=== PATIENT | female | born 1945 | race Caucasian/White ===

== ENCOUNTER 2024-08-09 15:19 | Inpatient (IN) | payer OTHER, MEDICARE ==
[2024-08-09] MEDS: cloNIDine HCL 0.1 MG TAB PO PRN (22:46)
[2024-08-09 23:49] LABS: Renal Epithelial <5 /HPF (None Seen); Specific Gravity 1.013 (1.005-1.030); Sqamous Epithelial <5 /HPF (None Seen); Urine Bacteria <20 /HPF (<20); Urine Bilirubin NEGATIVE (Negative); Urine Blood Negative (Negative); Urine Clarity Turbid (Clear); Urine Color Light-Yellow (Yellow); Urine Culture Reflex Order REFLEXED; Urine Glucose NEGATIVE (Negative); Urine Ketones NEGATIVE (Negative); Urine Micro Reflex YN NO BILL MICROSCOPIC; Urine Nitrite NEGATIVE (Negative); Urine Protein 1+ (Negative); Urine RBC <5 /HPF (None Seen); Urine Urobilinogen Normal (Normal)
[2024-08-10 06:26] LABS: Absolute Basophils 0.1 K/uL (0-0.5); Absolute Eosinophils 0.6 K/uL (0-0.5); Absolute Lymphocytes (CBC) 3.1 K/uL (0.7-4.9); Absolute Neutrophil 5.2 K/uL (1.8-8.0); Basophils % 1.1 % (0-1.3); Eosinophils % 6.1 % (0-4.4); Hematocrit 34.9 % (36.0-45.0); Hemoglobin 11.5 g/dL (12.0-15.0); Lymphocytes % 30.9 % (15.3-44.8); MCH 28.9 pg (27.0-35.0); MCHC 32.9 g/dL (32.0-36.0); MPV 8.2 fL (7.6-11.3); Neutrophils % 51.9 % (41.7-73.7); Platelets 274 thou/uL (152-406); RBC Red Blood Cell Count 3.97 M/uL (3.86-4.86)
[2024-08-10] MEDS: LEVOTHYROXINE SOD 0.125 MG TAB PO SCH (06:44)
[2024-08-10 06:51] LABS: Albumin 2.6 g/dL (3.4-5.0); Anion Gap 8.4 mEq/L (5.0-15.0); Potassium 3.4 mEq/L (3.5-5.1); Prealbumin 15.5 mg/dL (20-40)
[2024-08-10] MEDS: INSULIN REGULAR (HUMAN) 100 UNIT/ML SQ SCH (07:19)
[2024-08-10] MEDS: ASPIRIN 81 MG CHEWABLE TABLET PO SCH (07:42)
[2024-08-10] MEDS: CLOPIDOGREL 75 MG TABLET PO SCH (07:42)
[2024-08-10] MEDS ORDERED: ENOXAPARIN 40 MG/0.4 ML SQ SCH (08:00)
--- NOTE | 2024-08-10 08:56 | RAD REPORT ---
EXAMINATION: ONE VIEW CHEST XR CLINICAL INDICATION: Female, 79 years old.,Cough TECHNIQUE: Frontal chest projection is submitted. Examination is limited by patient positioning and t echnique. COMPARISON: No prior exam. FINDINGS: The lungs are well inflated and clear. No pneumothorax or sizable effusion. The heart is normal in s ize. Mediastinal contours are unremarkable. IMPRESSION: No acute intrathoracic abnormalities.
[2024-08-10] MEDS: AMLODIPINE 5 MG TAB PO SCH (10:07)
[2024-08-10] MEDS: POTASSIUM 25 MEQ EFFERV TAB PO ONE (11:34)
[2024-08-10] MEDS: lisinopriL 10 MG TAB PO SCH (11:35)
[2024-08-10] MEDS: ENSURE ENLIVE 237 ML CAN PO SCH (11:37)
[2024-08-10] MEDS: ENOXAPARIN 40 MG/0.4 ML SQ SCH (16:37)
[2024-08-10] MEDS: ATORVASTATIN 40 MG TAB PO SCH (19:40)
--- NOTE | 2024-08-11 00:46 | HP ---
Date of Admission: 08/09/2024 Time Of Service: 10:30 a.m. Chief Complaint: "I had a stroke and has some weakness on my right side." History Of Present Illness: Ms. 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 brought her to the [facility], where she was evaluated and given t he onset was prior to the 4-1/2-hour window, she did not have TNKs. She was treated with dual-antipl atelet medications, aspirin, Plavix, folic acid have permissive hypertension. CT scan of the head did not show an occlusion such as acute ischemic stroke or hemorrhagic stroke or an aneurysm . Blood workup was normal. She was transferred to [facility] for higher level of car e, where an MRI revealed a left pontine ischemic stroke that is likely to have been a lacunar stroke. Transthoracic echocardiogram was with a normal ejection fraction. There was a mildly dilated left atrium. She had Lipitor added along with aspirin, Plavix, and folic acid. She is monitored in telem etry, has an insulin sliding scale, and then evaluated by Physical Therapy and speech therapist. She was found to have significant hemiplegia on the right and required DDAVP treatment for intracranial atherosclerosis, and she was found to have moderate assistance required for bed mobilization, minimum assistance for transfers with a quad cane, ambulating 25 feet with a rolling walker. She did have f all precautions placed. She was evaluated by the Speech for swallowing and did pass the swallow stud y, but did require Speech Therapy to continue, but had dysarthria and some mild articulation issues. As a result, she is now functioning well below her prior level of functioning and would benefit from aggressive inpatient rehabilitation to help her return to her prior level of functioning and reduce risk of rehospitalization. In the meanwhile, her comorbid conditions need to be addressed and that w ill be done in inpatient rehabilitation. Past Medical History: Includes breast cancer, glaucoma, hypertension, hypothyroidism. She had breas t lumpectomy in 2006, colonoscopy in 2022, hysterectomy also done. She had intracapsular cataract ex traction with intraocular lens implantation and thyroidectomy. Allergies: AMOXICILLIN. Imaging: CT angiogram of her head and neck on 08/05 shows focal severe stenosis of the proximal aspe ct of the left posterior division of the M1 segment, moderate to high-grade narrowing in the right M2 segment, no aneurysm or additional high-grade stenosis in the intracranial or cervical vessels seen. There is unremarkable CT perfusion study. A CT stroke of the head without contrast show s no acute intracranial abnormalities, mass effects, hemorrhage. There is an indeterminate lacunar i nfarct in the right anterior ambrose radiata, probably subacute to chronic. She had a JOSH with bubble study that was negative. Medications: Tylenol 650 mg every 6 hours as needed, Norvasc 5 mg daily, aspirin 81 mg daily, Lipito r 40 mg daily, Catapres 0.1 mg for systolic blood pressure greater than 170 every 4 hours, Plavix 75 mg daily, Lovenox 40 mg subcutaneously daily, insulin sliding scale. She has Synthroid 0.125 mg satnam y, lisinopril 10 mg twice daily, Ensure Enlive 237 mL twice daily. Family History: Noncontributory. Social History: No alcohol, tobacco, or IV drug use. Lives in single family home with family. Review of Systems: She does report incoordination in upper and lower extremities. Mild vertigo or dizziness-type sympto ms. Mild dysarthria. No rash or other issues such as psychiatric issues. No active gastrointestina l or genitourinary complaints. Current Level Of Functioning: Currently setup assistance for eating, supervision for oral hygiene. Maximal assistance for toileting, showering, upper body dressing is at moderate assistance. Lower dot dy dressing maximum assistance, donning and doffing of footwear maximal assistance. Rolling left-to- right, [id number] moderate contact guard assistance. Lying to sitting on the side of bed moderate assistance. Svx-vs-hgdqf moderate assistance. Transfer from bed to chair to toilet to shower, maxim al assistance. Ambulation, she is dependent with a rolling walker covering only 25 feet. Physical Examination: Vital Signs: Blood pressure 140/68, pulse 68, respiratory rate 14, temperature 97.6, oxygen saturati on 96%, weight 156 pounds, height 5 feet, BMI 30.5. General: Ms. Forman is sitting in a chair beside the bed. HEENT: She is normocephalic, atraumatic. Sclerae are anicteric. Oropharynx pink and moist. Neck: Supple. Chest: Clear. Heart: Regular. Extremities: She does have significant weakness in the right upper and lower extremity, working hard to improve the strength on that side. Left intact in terms of coordination, strength, and sensation . Laboratory Studies: White blood cell count 10.1, hemoglobin 11.5, platelets 274. Sodium 139, potass ium 3.4, chloride 107, carbon dioxide 27, BUN 35, creatinine 0.94, glucose ranged from 101 to 114, ca lcium 8.3, magnesium 2.0, albumin 2.6, prealbumin 15.5. Urinalysis shows 75 esterase, 10-20 red bloo d cells, 1+ protein, turbid clarity, otherwise unremarkable. Rehab And Medical Assessment And Plan: Ms. Forman is an 79-year-old patient admitted to the [facility] rehabilitation unit with impairment category 01, stroke. Impairment group code is 01.2, right bod y involvement, left brain. Etiologic diagnosis, pontine infarct. 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 Plan: 1.She will have physical, occupational, and speech therapy for 3-1/2 hours, 5 of 7 days. 2.We will continue for pain management Tylenol 650 mg every 6 hours as needed, Norvasc 5 mg daily fo r her hypertension along with Prinivil 10 mg twice daily. She has clonidine for systolic blood press ure greater than 170. She has Lipitor for dyslipidemia, Plavix and aspirin for stroke risk reduction , Lovenox for DVT risk reduction, Synthroid for hypothyroidism at 0.125 mg daily, and she has Ensure Enlive for malnutrition 237 mL twice daily. Comorbidities That Are Impacting Rehabilitation: She has hypertension at this point with blood press ures that are poorly controlled with adjustments for medications required systolic to 131. Adjustments will be made as she is doing therapy and her blood sugars do show good control at this point. She has mild malnutrition, electrolyte abnormalities; those need to be addressed. There is a risk of aspiration pneumonia. The patient needs aggressive speech therapy to reduce that risk and w ork on the respiratory exercises as well, such as incentive spirometry. Rehab Specific Plan: Ms. Forman will have physical, occupational, and speech therapy for 3-1/2 hour s, 5 of 7 days to improve her ability to transfer from bed to chair to toilet to shower and to perfor m toilet and showering. She will have therapy to help her with her ambulation more than household di stances, up and down steps, and to manage a wheelchair for longer distances. In addition, cognitive therapy via Speech to help with swallowing and articulation as well to help her minimize the risk of aspiration, make good decisions, and have safety awareness as a priority. Ms. Forman has a good understanding of the process of admission to the inpatient rehabilitation unit and how she will benefit from physical, occupational, and speech therapy. She will have 24 hours a day, 7 days a week skilled rehabilitation nursing, daily physician evaluation and management, and [facility] [place] service evaluation and management for discharge planning, home equipment, and followup along with therapy. If need be, additional help from the hospitalist service will be consulted. Barriers To Discharge: Currently, barriers are minimal for discharge. Family is at home and she sonny l have to continue therapy via Home Health. There is a risk of falling and bleeding obviously from h er incoordination related to the location of her stroke, but she has a good prognosis for doing very well. Length Of Stay: About 12 to 14 days. Disposition: Back to home with family and continue home health. Prognosis: Good. Code Status: Full code. Rehab Specific Goals: 1.Become independent with upper and lower body dressing, donning and doffing of footwear. 2.Independently mobilize 250 feet with a rolling walker and 250 feet with a wheelchair and independe ntly go up and down steps. 3.Independently perform cognitive functioning including safety awareness, memory, judgment issues, a nd also for swallowing. The above goals were reviewed with Ms. Forman and she is in agreement. By signing this document, I acknowledge I personally performed a full physical examination on Ms. Jun padilla no later than 24 hours after her admission to the inpatient rehabilitation facility and determin ed that she is able to tolerate the above course of treatment at an intensive level for a reasonable period of time. A detailed individualized plan of care for her will be completed by hospital day 4 b ased on the preadmission screen, history and physical, and therapy evaluations. KYLER Voice ID: [id number]
[2024-08-11] MEDS: AMLODIPINE 5 MG TAB PO SCH (16:58)
[2024-08-11] MEDS ORDERED: DOCUSATE NA/SENNA CONC 1 TAB PO PRN (17:37)
[2024-08-11] MEDS ORDERED: AMLODIPINE 5 MG TAB PO SCH (20:00)
[2024-08-12] MEDS ORDERED: TRAZODONE 50 MG TABLET PO PRN (19:15)
[2024-08-12] MEDS: GABAPENTIN 300 MG CAP PO SCH (21:03)
[2024-08-12] MEDS: MELATONIN 3 MG TABLET PO PRN (21:03)
[2024-08-12] MEDS: LIDOCAINE 4% PATCH TOP SCH (21:03)
--- NOTE | 2024-08-13 07:16 | RAD REPORT ---
EXAM:Extremity Venous Uni Ltd HISTORY: Right leg pain TECHNIQUE: Sonographic evaluation right lower extremity performed.Grayscale, color and spectral alana sis performed on all vessels COMPARISON: None. FINDINGS: Right common femoral, superficial femoral, greater saphenous, popliteal and posterior tibial veins ar e compressible and demonstrate augmentation. Doppler demonstrates good flow. IMPRESSION: No evidence of deep venous thrombosis involving the right lower extremity.
[2024-08-13] MEDS: CRANBERRY FRUIT EXTRACT 200 MG CAP PO SCH (07:32)
[2024-08-13] MEDS: GLUCERNA SHAKE 237 ML CAN PO SCH (07:58)
[2024-08-13] MEDS ORDERED: LIDOCAINE 4% PATCH TOP SCH (08:00)
[2024-08-13] MEDS ORDERED: D10W 125 ML IV PRN (13:42)
[2024-08-13] MEDS ORDERED: GLUCAGON 1 MG/VIAL IM PRN (13:42)
[2024-08-13] MEDS: lisinopriL 10 MG TAB PO SCH (14:29)
--- NOTE | 2024-08-13 18:45 | P.RH.PN ---
Estimated Length of Stay: 12 Expected Discharge Date: 08/15/24 Discharge Disposition Plan: Home Family Support: Yes Care Home Goal: Mobility, Transfers, Self Care Vital Signs: Last Vital Signs Temp 98.1 F 08/13/24 07:31 Pulse 100 H 08/13/24 14:31 Resp 16 08/13/24 07:31 BP 165/78 H 08/13/24 14:31 Pulse Ox 96 08/13/24 07:31 Laboratory: Laboratory Last Values WBC 10.10 thou/uL (4.3-10.9) 08/10/24 05:07 RBC 3.97 M/uL (3.86-4.86) 08/10/24 05:07 Hgb 11.5 g/dL (12.0-15.0) L 08/10/24 05:07 Hct 34.9 % (36.0-45.0) L 08/10/24 05:07 MCV 88.0 fL (80-100) 08/10/24 05:07 MCH 28.9 pg (27.0-35.0) 08/10/24 05:07 MCHC 32.9 g/dL (32.0-36.0) 08/10/24 05:07 RDW 15.0 % (12.1-15.2) 08/10/24 05:07 Plt Count 274 thou/uL (152-406) 08/10/24 05:07 MPV 8.2 fL (7.6-11.3) 08/10/24 05:07 Neutrophils % 51.9 % (41.7-73.7) 08/10/24 05:07 Lymphocytes % 30.9 % (15.3-44.8) 08/10/24 05:07 Monocytes % 10.0 % (3.3-12.3) 08/10/24 05:07 Eosinophils % 6.1 % (0-4.4) H 08/10/24 05:07 Basophils % 1.1 % (0-1.3) 08/10/24 05:07 Absolute Neutrophils 5.2 K/uL (1.8-8.0) 08/10/24 05:07 Absolute Lymphocytes 3.1 K/uL (0.7-4.9) 08/10/24 05:07 Absolute Monocytes 1.0 K/uL (0.1-1.3) 08/10/24 05:07 Absolute Eosinophils 0.6 K/uL (0-0.5) H 08/10/24 05:07 Absolute Basophils 0.1 K/uL (0-0.5) 08/10/24 05:07 Sodium 139 mEq/L (136-145) 08/10/24 05:07 Potassium 3.4 mEq/L (3.5-5.1) L 08/10/24 05:07 Chloride 107 mEq/L (98-107) 08/10/24 05:07 Carbon Dioxide 27 mEq/L (21-32) 08/10/24 05:07 Anion Gap 8.4 mEq/L (5.0-15.0) 08/10/24 05:07 BUN 25 mg/dL (7-18) H 08/10/24 05:07 Creatinine 0.94 mg/dL (0.55-1.02) 08/10/24 05:07 Est GFR (CKD-EPI) 61 ml/min (=/>90) L 08/10/24 05:07 Glucose 107 mg/dL (74-106) H 08/10/24 05:07 POC Glucose 113 mg/dL (65-120) 08/13/24 16:40 Calcium 8.3 mg/dL (8.5-10.1) L 08/10/24 05:07 Magnesium 2.0 mg/dL (1.6-2.4) 08/10/24 05:07 Albumin 2.6 g/dL (3.4-5.0) L 08/10/24 05:07 Prealbumin 15.5 mg/dL (20-40) L 08/10/24 05:07 Urine Color Light-yellow (Yellow) 08/09/24 23:10 Urine Clarity Turbid (Clear) H 08/09/24 23:10 Urine pH 6.0 (5.0-7.0) 08/09/24 23:10 Ur Specific [place] 1.013 (1.005-1.030) 08/09/24 23:10 Glucose (UA)(Auto) Negative (Negative) 08/09/24 23:10 Urine Ketones Negative (Negative) 08/09/24 23:10 Urine Blood Negative (Negative) 08/09/24 23:10 Urine Nitrite Negative (Negative) 08/09/24 23:10 Urine Bilirubin Negative (Negative) 08/09/24 23:10 Urine Urobilinogen Normal (Normal) 08/09/24 23:10 Ur Leukocyte Esterase 75 Darvin/uL (Negative) H 08/09/24 23:10 Urine RBC <5 /HPF (None Seen) 08/09/24 23:10 Urine WBC 10-20 /HPF (<5) H 08/09/24 23:10 Ur Squamous Epith Cells <5 /HPF (None Seen) 08/09/24 23:10 U Non-Squamous Epi Cells <5 /HPF (None Seen) 08/09/24 23:10 Ur Renal Epithelial Cell <5 /HPF (None Seen) 08/09/24 23:10 Urine Bacteria <20 /HPF (<20) 08/09/24 23:10 Urine Culture Reflexed Reflexed 08/09/24 23:10 Urine Total Protein 1+ (Negative) H 08/09/24 23:10 Weight: 158 lb 14.4 oz Wound Present: No Closed Surgical Incision Present: No Negative Pressure Wound Therapy Present: No Physician Update: Labs reviewed and are stable. Mildly low potassium and prealbumin have been addressed. Ambulating 250' with rolling walker and performing ADLs with CGA. Mild short term memory, and difficulty with safety awareness. Summary: Patient's care plan and jail goals have been reviewed and revised as necessary. Please see the Rehabilitation Signature page for all necessary signatures.
[2024-08-13] MEDS: APIXABAN 2.5 MG TABLET PO SCH (19:55)
[2024-08-13] MEDS: CARBOXYMETHYLCELLULOSE SODIUM 0.5% 15 ML OPTH SCH (19:57)
--- NOTE | 2024-08-14 00:43 | PN ---
Date of Progress Note: 08/13/2024 Time Of Service: 1:45 p.m. Subjective: Ms. Forman is doing very well, mobilizing well, and has no new complaints except there is some right-sided weakness and incoordination from which she is recovering. She is working hard. Review of Systems: Mild myalgias, arthralgias in the right upper and lower extremities. No fevers, chills, nausea, vomi ting, or rash. Physical Examination: Vital Signs: Blood pressure 165/78, pulse 91-100, respiratory rate 16-20, temperature 98.1, oxygen s aturation 96%. General: Ms. Forman is mobilizing around the unit. HEENT: She is normocephalic, atraumatic. Sclerae anicteric. Oropharynx pink and moist. Neck: Supple. Chest: Clear. Heart: Regular. Extremities: No significant edema, cyanosis, or clubbing noted. She has some mild incoordination an d weakness in the right body from her left brain pontine infarct. She otherwise is doing well with h er recovery from the stroke. Laboratory Studies: White blood cell count 10.1, hemoglobin 11.5, platelets 274. Blood sugars range d from 112 to 191. Sodium 139, potassium 3.4, chloride 107, BUN 25, creatinine 0.94. Prealbumin 15. 5, albumin 2.6. Magnesium 2.0. She did have Doppler study done of the right lower extremity where she has the weakness. The study s howed no evidence of deep vein thrombosis involving the right lower extremity. Progress Made With Physical, Occupational, And Speech Therapy: With physical therapy today, she did perform gait, ambulating 250 feet twice, 220 feet once, another 125 feet with minimum to contact guar d assistance. Did have some episodes of decreased ability. Wheelchair mobilization 30 feet with sta ndby assistance and verbal cues. Wgh-lx-sutck transfer done with minimum to contact guard assistance . With occupational therapy, required minimum assistance for toilet hygiene and after to pull up dyer ts, contact guard for khw-br-vnpho transfers. She did have more strength in the wrists on the right. With speech, demonstrated recall of 4 words given cues with 1 of 4 using 3 recall after 5 minutes a nd 3 of 4 with cued recall. Ms. Forman is an 79-year-old patient in rehabilitation unit with the left pontine stroke affecting r ight-sided incoordination and strength is also slightly decreased and she is making good progress ovmarcin mchugh with her physical, occupational, and speech therapy. In terms of her comorbidities, she has hyp ertension managed with Norvasc, Eliquis 2.5 mg twice daily for DVT prophylaxis, dry eyes, treated wit h Artificial Tears, aspirin 81 mg daily for stroke risk reduction. She has clonidine for elevated bl ood pressure greater than 170, 0.1 mg every 4 hours as needed. Plavix added to the aspirin for strok e risk reduction. She has gabapentin for neuropathic pain, Synthroid for hypothyroidism, melatonin f or insomnia, Senokot S for constipation, trazodone for insomnia along with melatonin, and Prinivil fo r blood pressure control. Medications will be continued as noted and she will continue with physical , occupational, and speech therapy 3.5 hours, 5 of 7 days. MIREILLE/ALONZO Voice ID: [id number] Report ID: [id number]
[2024-08-14] MEDS: ACETAMINOPHEN 325 MG TABLET PO PRN (22:26)
--- NOTE | 2024-08-15 02:08 | PN ---
Date of Progress Note: 08/14/2024 Time Of Service: 1:45 p.m. Subjective: Ms. Forman is in the gym, doing therapy, feeling better about progress, more improvemen t in the right hand strength, but still hand is significantly weak, able to do very minimal finger mo vement of the thumb and index. No functional use yet with the hand. No other new complaints. Review of Systems: Mild myalgias and arthralgias, improved. In terms of swelling, that is much less in the right hand. She is having it elevated while in bed. There is a complaint of some pain in the right thumb and in dex finger potentially due to the flexion of the wrist while moving the wheelchair and holding onto t he rolling walker, likely carpal tunnel symptoms. She will have a wrist brace in place while mobiliz ing and will have topical Salonpas, Blue-Emu, and Voltaren creams applied twice daily to the wrist to help mitigate those symptoms. Physical Examination: Vital Signs: Blood pressure 160/74, pulse 98, respiratory rate of 16, temperature 97, oxygen saturat ion 96%. General: Ms. Forman again is resting in a chair and she is in no significant distress. HEENT: Normocephalic, atraumatic. Sclerae anicteric. Oropharynx moist. Neck: Supple. Chest: Clear. Heart: Regular. No significant edema or cyanosis. Extremities: Her right upper extremity, less edema noted. Again, strength is around 1 perhaps in t he right hand in terms of flexion and extension, none noticed and this is just movement of the thumb and the index finger barely so, proximally around 2-3 and the lower extremity improved more than 3 pr oximally and distally, has to do better with therapy. Laboratory Studies: Noted blood sugars 118, 154. Progress Made With Physical, Occupational, And Speech Therapy: Regarding physical therapy today, she ambulated with a rolling walker 250 feet, another 125 feet twice, and then 111 feet twice and did so with minimum to contact guard assistance. Mobilized wheelchair 250 feet with supervision. Sit-to-s tand transfers done with contact guard assistance. With occupational therapy, sbd-ba-xhoeg transfers and utjbq-cp-kndpr transfers done with supervision. Able to flex the right thumb and increase range of motion as the therapist noted. With speech, used strategies for multisyllabic words, reading sen tences out loud with 100% accuracy and intelligibility, maximum phonation time of 8 seconds. Assessment: Ms. Forman is an 79-year-old patient in rehabilitation unit with a stroke affecting the pontine region, right-sided weakness, incoordination. No use effectively in the right hand and dysa rthria, dysphagia present. Right lower extremity improving strength mildly. She has Eliquis 2.5 mg twice daily for DVT prophylaxis, Norvasc for blood pressure control, aspirin for stroke reduction, Li pitor for dyslipidemia, Plavix along with aspirin for stroke risk reduction, gabapentin for neuropath ic pain, Synthroid for hypothyroidism, Prinivil for blood pressure control, Senokot for constipation, Desyrel for insomnia. Plan: 1.She will continue with physical, occupational, and speech therapy for 3.5 hours, 5 of 7 days. 2.Continue comorbid condition medications as noted. She has minimal return of strength in the right lower extremity and will likely require significant help for her to be more functional given the sig nificant deficit and right-sided weakness as predominant side and she will likely continue therapy af ter discharge as able to. Her is at the bedside. May be able to aid at home with Home Healt h and eventually potentially outpatient therapy. MIREILLE/ALONZO Voice ID: [id number] Report ID: [id number]
[2024-08-15] MEDS: AMLODIPINE 5 MG TAB PO SCH (19:29)
[2024-08-15] MEDS: lisinopriL 10 MG TAB PO SCH (19:30)
--- NOTE | 2024-08-15 20:08 | PN ---
Date of Progress Note: 08/15/2024 Time Of Service: 1:40 p.m. Subjective: Ms. Forman is resting in the room. Her is at bedside. She is showing some sli ght improvement in the right upper extremity weakness from her stroke deficits, but still has signifi cant ways to go to be able to improve to functional utility. Objective: No significant fevers or chills. Swelling is much better in the right arm as she is elev ating the arm and some wrist pain is there from carpal tunnel related to how she is using the rolling walker and the wheelchair with mobilization. Physical Examination: Vital Signs: Blood pressure 144 down to 96 over 50 to 70, pulse 72 to 81, respiratory rate 16 to 20, temperature 97.7, oxygen saturation 97%. General: Ms. Forman again is sitting in a chair in the room. HEENT: She is normocephalic, atraumatic. Sclerae anicteric. Oropharynx moist. Neck: Supple. Chest: Clear. Heart: Regular. Extremities: Right upper and lower extremity still has significant weakness. Neurological: Right face, decreased nasolabial fold slight and some dysarthria and dysphagia. Laboratory Studies: Blood sugars ranged from 95 to 121. X-ray Imaging: No new x-rays or imaging. Medications: Have been reviewed. She did have a decrease of Norvasc to 5 mg twice daily with hold p arameters of less than 120 to hold. Prinivil also cut to 10 mg twice daily with hold parameters as w ell. Otherwise, medications are unchanged. Progress Made With Physical, Occupational, And Speech Therapy: With Physical Therapy, today she mobi lized a rolling walker 325 feet, another 250 feet twice, another 100 feet, and 90 feet with minimum t o contact guard assistance. Mobilized a wheelchair 250 feet with independence. [id number] transfe rs, supine to sit transfers done with contact guard assistance. With her occupational therapy, she d id static standing balance, improved lower body dressing, improved toilet hygiene. did carolin t with toilet hygiene including pulling pants up at the end. With Speech, speech strategies reviewed with the patient and her including reduced rate of information over articulation and increas ed loudness as she speaks. She did read open and in sentences with accuracy. Assessment And Plan: Ms. 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 She has made fair progress, but still has a long way to go to be able to become functional. Her is very involved and helpful. She has decreased mobility, decreased physical functioning, hypertension with now low blood pressures, for wh ich blood pressure medications have been decreased. She has Eliquis for DVT prophylaxis. Dyslipidem ia addressed with Lipitor. Plavix and aspirin for stroke risk reduction. Gabapentin for neuropathic pain. Synthroid for hypothyroidism. Senokot for constipation. Desyrel for insomnia. Plan: 1.She will continue with physical, occupational, and speech therapy as noted. 2.Continue with all comorbid condition medications and they are listed above. Medications will be a djusted appropriately including for hypertension medications which were decreased as she is doing bet ter with mobilization and lowering her blood pressures. LB/MODL Voice ID: [id number] Report ID: [id number]
[2024-08-16 05:19] LABS: Absolute Basophils 0.1 K/uL (0-0.5); Absolute Eosinophils 0.5 K/uL (0-0.5); Absolute Lymphocytes (CBC) 2.7 K/uL (0.7-4.9); Absolute Monocytes 1.4 K/uL (0.1-1.3); Absolute Neutrophil 6.5 K/uL (1.8-8.0); Basophils % 1.1 % (0-1.3); Eosinophils % 4.4 % (0-4.4); Hematocrit 33.5 % (36.0-45.0); MCH 28.6 pg (27.0-35.0); MCHC 32.9 g/dL (32.0-36.0); MCV 86.8 fL (80-100); MPV 7.8 fL (7.6-11.3); Monocytes % 12.2 % (3.3-12.3); Neutrophils % 58.3 % (41.7-73.7); Nucleated Red Blood Cells % 0.1 % (0-0); Platelets 337 thou/uL (152-406); RBC Red Blood Cell Count 3.86 M/uL (3.86-4.86); Red Cell Distribution Width 14.5 % (12.1-15.2)
[2024-08-16 05:38] LABS: Albumin 2.4 g/dL (3.4-5.0); Anion Gap 7.9 mEq/L (5.0-15.0); Magnesium 1.9 mg/dL (1.6-2.4); Potassium 3.9 mEq/L (3.5-5.1); Prealbumin 14.8 mg/dL (20-40)
--- NOTE | 2024-08-16 15:31 | PN ---
Date of Progress Note: 08/16/2024 Time Of Service: 1:25 p.m. Subjective: Ms. Forman is resting in bed in between therapy sessions. at bedside. She aga in is noting some slow but some improvement in the right upper extremity after her stroke in the kathya on the left side. She has improved mood. Prescription was given for the patient having quad cane. Objective: No fevers, chills, myalgias, arthralgias, rash, headache, weight change. No psychiatric issues. Physical Examination: Vital Signs: Blood pressure 165/92, pulse 88, respiratory rate 18, temperature 97.4, O2 saturation 9 5%. Weight 158 pounds, height 5 feet, BMI 30.9. General: Ms. Forman is resting in bed. Neurologic: Mild nasolabial fold decrease on the right. Right arm significantly weak still, right l eg as well, around 2-3 distally and 3 proximally. Sensation decreased on right compared to left side . Laboratory Studies: White blood cell count 10.1, hemoglobin 10, platelets 337. Sodium 140, potassiu m 3.9, chloride 108, carbon dioxide 28, BUN 28, creatinine 0.9, glucose ranged from 126-161. Calcium 8.9, magnesium 1.9. Albumin 2.4, prealbumin 14.8. Total cholesterol 128, LDL cholesterol 73, HDL 3 9, her cholesterol to HDL ratio 3.28. X-ray/imaging: No new x-rays or imaging. Medications: Current medications have been reviewed and are unchanged. Progress Made With Physical, Occupational, And Speech Therapy: With her physical therapy today, she did [id number] transfers with contact guard to standby assistance, [id number] transfers also wit h contact guard to standby assistance. With ambulation, she ambulated with a rolling walker 275 feet , 250 feet twice and 125 feet twice with minimum assistance to contact guard assistance. Wheelchair mobilization was 250 feet independently. With her occupational therapy, practiced range of motion, r ight elbow flexion, extension, supination, pronation and wrist flexion, extension. Also, she did con tact guard assistance for her [id number]-nw-[id number] transfers, improved her dynamic and standing balance. Wit h speech, she did use divergent naming for 10 holiday associated words given specific letters with 10 0% accuracy. She did recall 19 words in consecutive order using a delayed recall task given moderate cues. Assessment: Ms. Forman is an 79-year-old patient in rehabilitation unit with pontine stroke affecti ng the left kathya and right body. She is making fair progress overall. She has decreased mobility, d ecreased physical functioning in addition to hypertension, insomnia, constipation, neuropathic pain, dyslipidemia, DVT risk and some need to address potential depression which can come with dominant colon d loss of function and may consider Cymbalta in addition. Plan: She will continue with physical, occupational, speech therapy, as noted. Continue all comorbi d condition medications as noted. Plan is for her to discharge in the next 2 days. Will continue th erapy via Home Health. MIREILLE/ALONZO Voice ID: [id number] Report ID: [id number]
[2024-08-17 12:15] VITALS: BMI 32.5
--- NOTE | 2024-08-17 13:58 | P.RH.PN ---
Estimated Length of Stay: 13 Expected Discharge Date: 08/18/24 Discharge Disposition Plan: Home Family Support: Yes Residential Goal: Mobility, Transfers, Self Care Vital Signs: Last Vital Signs Temp 97.2 F 08/17/24 08:00 Pulse 83 08/17/24 08:00 Resp 16 08/17/24 08:00 BP 140/70 08/17/24 08:00 Pulse Ox 96 08/17/24 08:00 Laboratory: Laboratory Last Values WBC 11.10 thou/uL (4.3-10.9) H 08/16/24 04:42 RBC 3.86 M/uL (3.86-4.86) 08/16/24 04:42 Hgb 11.0 g/dL (12.0-15.0) L 08/16/24 04:42 Hct 33.5 % (36.0-45.0) L 08/16/24 04:42 MCV 86.8 fL (80-100) 08/16/24 04:42 MCH 28.6 pg (27.0-35.0) 08/16/24 04:42 MCHC 32.9 g/dL (32.0-36.0) 08/16/24 04:42 RDW 14.5 % (12.1-15.2) 08/16/24 04:42 Plt Count 337 thou/uL (152-406) 08/16/24 04:42 MPV 7.8 fL (7.6-11.3) 08/16/24 04:42 Neutrophils % 58.3 % (41.7-73.7) 08/16/24 04:42 Lymphocytes % 24.0 % (15.3-44.8) 08/16/24 04:42 Monocytes % 12.2 % (3.3-12.3) 08/16/24 04:42 Eosinophils % 4.4 % (0-4.4) 08/16/24 04:42 Basophils % 1.1 % (0-1.3) 08/16/24 04:42 Absolute Neutrophils 6.5 K/uL (1.8-8.0) 08/16/24 04:42 Absolute Lymphocytes 2.7 K/uL (0.7-4.9) 08/16/24 04:42 Absolute Monocytes 1.4 K/uL (0.1-1.3) H 08/16/24 04:42 Absolute Eosinophils 0.5 K/uL (0-0.5) 08/16/24 04:42 Absolute Basophils 0.1 K/uL (0-0.5) 08/16/24 04:42 Sodium 140 mEq/L (136-145) 08/16/24 04:42 Potassium 3.9 mEq/L (3.5-5.1) 08/16/24 04:42 Chloride 108 mEq/L (98-107) H 08/16/24 04:42 Carbon Dioxide 28 mEq/L (21-32) 08/16/24 04:42 Anion Gap 7.9 mEq/L (5.0-15.0) 08/16/24 04:42 BUN 28 mg/dL (7-18) H 08/16/24 04:42 Creatinine 0.90 mg/dL (0.55-1.02) 08/16/24 04:42 Est GFR (CKD-EPI) 65 ml/min (=/>90) L 08/16/24 04:42 Glucose 126 mg/dL (74-106) H 08/16/24 04:42 POC Glucose 109 mg/dL (65-120) 08/17/24 10:56 Calcium 8.9 mg/dL (8.5-10.1) 08/16/24 04:42 Magnesium 1.9 mg/dL (1.6-2.4) 08/16/24 04:42 Albumin 2.4 g/dL (3.4-5.0) L 08/16/24 04:42 Prealbumin 14.8 mg/dL (20-40) L 08/16/24 04:42 Triglycerides 78 mg/dL (<150) 08/16/24 04:42 Cholesterol 128 mg/dL (<200) 08/16/24 04:42 LDL Cholesterol, Calc 73 mg/dL (<130) 08/16/24 04:42 HDL Cholesterol 39 mg/dL (40-60) L 08/16/24 04:42 Cholesterol/HDL Ratio 3.28 08/16/24 04:42 Urine Color Light-yellow (Yellow) 08/09/24 23:10 Urine Clarity Turbid (Clear) H 08/09/24 23:10 Urine pH 6.0 (5.0-7.0) 08/09/24 23:10 Ur Specific Ward 1.013 (1.005-1.030) 08/09/24 23:10 Glucose (UA)(Auto) Negative (Negative) 08/09/24 23:10 Urine Ketones Negative (Negative) 08/09/24 23:10 Urine Blood Negative (Negative) 08/09/24 23:10 Urine Nitrite Negative (Negative) 08/09/24 23:10 Urine Bilirubin Negative (Negative) 08/09/24 23:10 Urine Urobilinogen Normal (Normal) 08/09/24 23:10 Ur Leukocyte Esterase 75 Darvin/uL (Negative) H 08/09/24 23:10 Urine RBC <5 /HPF (None Seen) 08/09/24 23:10 Urine WBC 10-20 /HPF (<5) H 08/09/24 23:10 Ur Squamous Epith Cells <5 /HPF (None Seen) 08/09/24 23:10 U Non-Squamous Epi Cells <5 /HPF (None Seen) 08/09/24 23:10 Ur Renal Epithelial Cell <5 /HPF (None Seen) 08/09/24 23:10 Urine Bacteria <20 /HPF (<20) 08/09/24 23:10 Urine Culture Reflexed Reflexed 08/09/24 23:10 Urine Total Protein 1+ (Negative) H 08/09/24 23:10 Weight: 166 lb 14.4 oz Wound Present: No Closed Surgical Incision Present: No Negative Pressure Wound Therapy Present: No Physician Update: Labs reviewed and are stable. Mildly dehydrated. BIMS 14. Pain is managed. Poor balance, anxiety and high fall risk. SLUMS 28. Working on incentive spirometry to improve speech clarity. Met on intermediate accountant physical therapy goal. Independent sit to stand. Walked 150' with quad cane with SBA, 15 steps and WC 250'. Met all STG and j2/6 LTG with OT. Summary: Patient's care plan and correction goals have been reviewed and revised as necessary. Please see the Rehabilitation Signature page for all necessary signatures.
[2024-08-17] MEDS: DOCUSATE NA/SENNA CONC 1 TAB PO SCH (16:10)
[2024-08-17 19:28] VITALS: TEMP 97.9
[2024-08-18 10:07] VITALS: BP 130/61
[2024-08-18] MEDS ORDERED: DOCUSATE NA/SENNA CONC 1 TAB PO SCH (14:30)
== END 2024-08-18 11:30 | disposition home health service (06) | DRG 57 ==
LOC: 5TH 20:55
PROVIDERS: ADMIT Psychiatry & Neurology Neurology with Special Qualifications in Child Neurology; ATTEND Psychiatry & Neurology Neurology with Special Qualifications in Child Neurology
DX: I69.351 Hemiplegia and hemiparesis following cerebral infarction affecting right dominant side (principal); E46 Unspecified protein-calorie malnutrition; I69.322 Dysarthria following cerebral infarction; I10 Essential (primary) hypertension; H40.9 Unspecified glaucoma; H81.10 Benign paroxysmal vertigo, unspecified ear; E03.9 Hypothyroidism, unspecified; C50.919 Malignant neoplasm of unspecified site of unspecified female breast; Z68.32 Body mass index [BMI] 32.0-32.9, adult; G47.00 Insomnia, unspecified; K59.00 Constipation, unspecified; E78.5 Hyperlipidemia, unspecified
CPT/HCPCS: 36415; 71045; 80048; 80061; 81001; 82040; 82947; 83735; 84134; 85025; 87086; 87088; 92507; 92523; 93971; 97110; 97112; 97116; 97129; 97163; 97165; 97530; 97542; J1650; J2003